=== PATIENT | male | born 1950 | race Caucasian/White ===

== ENCOUNTER 2018-01-14 10:45 | Emergency (ER) | payer OTHER ==
[2018-01-14] MEDS ORDERED: NS 1,000 ML IV ONE (11:23)
[2018-01-14 11:30] LABS: PLATELET COUNT 210 10^3/uL (150-400)
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
[2018-01-14] MEDS ORDERED: GADOBUTROL 10 ML VIAL IVP ONE (11:53)
--- NOTE | 2018-01-14 12:18 | CPEKG ---
Test Reason : OPEN Blood Pressure : / mmHG Vent. Rate : 061 BPM Atrial Rate : 060 BPM P-R Int : 204 ms QRS Dur : 082 ms QT Int : 400 ms P-R-T Axes : 078 073 040 degrees QTc Int : 403 ms Sinus rhythm Confirmed by Leopoldo Sylvester ([id number]) on 01/14/2018 12:17:28 PM Referred By: Confirmed By:Leopoldo Sylvester
[2018-01-14 14:44] VITALS: BP 110/77
== END 2018-01-14 14:45 | disposition home or self-care (01) ==
DX: R42 Dizziness and giddiness (principal); E86.9 Volume depletion, unspecified
CPT/HCPCS: A9585

== ENCOUNTER → 2018-02-17 | Outpatient (CLI) | payer OTHER | LOC: FIMAGING 08:09 | PROVIDERS: ATTEND Neurological Surgery | DX: M50.323 Other cervical disc degeneration at C6-C7 level (principal) ==

== ENCOUNTER → 2018-05-22 | Outpatient (CLI) | payer OTHER | LOC: FIMAGING 08:01 | PROVIDERS: ATTEND Family Medicine | DX: M43.16 Spondylolisthesis, lumbar region (principal); M51.37 Other intervertebral disc degeneration, lumbosacral region; M48.061 Spinal stenosis, lumbar region without neurogenic claudication; M53.87 Other specified dorsopathies, lumbosacral region ==